=== PATIENT | male | born 1960 | race Caucasian/White ===

== ENCOUNTER 2020-09-24 15:13 | Emergency (ER) | payer OTHER ==
[~2020-09-24] VITALS: Ht 180.3 cm; Wt 95.5 kg
[2020-09-24 15:51] LABS: BASO % 0.3 % (0.0-2.0); EOS # 0.1 (0.0-0.7); EOS % 1.3 % (0-4.0); GRAN # 6.9 (1.4-6.5); GRAN % 71.2 % (42.2-75.2); HEMATOCRIT 43.9 % (42.0-52.0); HEMOGLOBIN 15.2 g/dl (13.5-18.0); LYMPH # 1.8 (1.2-3.4); MEAN CELL VOLUME 87 fl (80.0-100.0); MEAN CORPUSCULAR HEMOGLOBIN 30 pg (27.0-31.0); MEAN CORPUSCULAR HGB CONC 35 g/dl (33.0-37.0); MEAN PLATELET VOLUME 8.3 fl (7.4-10.4); MONO # 0.7 (0.1-0.6); MONO % 7.7 % (1.7-9.3); PLATELET COUNT 253 K/mm3 (130-400); RED BLOOD COUNT 5.04 M/mm3 (4.20-5.60); REDCELL DISTRIBUTION WIDTH-CV 12.6 % (11.5-14.5)
[2020-09-24 16:15] LABS: ANION GAP 4 mmol/L (7-16); AST,SGOT 26 U/L (15-37); BILIRUBIN,TOTAL 0.5 mg/dL (0.0-1.0); BLOOD UREA NITROGEN 15 mg/dL (9-20); CALCIUM 9.1 mg/dL (8.4-10.2); CARBON DIOXIDE 27 mmol/L (22-30); CHLORIDE 103 mmol/L (98-107); CREATININE, serum 0.94 (0.66-1.25); GLUCOSE 114 mg/dL (74-106); POTASSIUM 3.5 mmol/L (3.4-5.0); SODIUM 134 mmol/L (137-145); TOTAL PROTEIN 7.1 gm/dL (6.4-8.2)
[2020-09-24 16:16] LABS: ALANINE AMINOTRANSFERASE 29 U/L (4-49); ALKALINE PHOSPHATASE 30 U/L (50-136); TROPONIN-I < 0.012 ng/mL (0.000-0.035)
[2020-09-24 16:20] LABS: PROTHROMBIN TIME 11.2 SECONDS (9.7-12.8)
[2020-09-24 16:22] LABS: PARTIAL THROMBOPLASTIN TIME 30.6 SECONDS (26.0-37.0)
[2020-09-24 16:23] LABS: ALCOHOL(ethanol),MEDICAL < 10 mg/dL
[2020-09-24 16:48] LABS: COLLECTION METHOD IN
[2020-09-24 17:13] LABS: TRICYCLIC ANTIDEPRESS URINE NEGATIVE
[2020-09-24 17:14] LABS: PH 7 (5-8); SQUAMOUS EPITHELIAL None Seen /hpf; URINE APPEARANCE Clear; URINE BACTERIA None Seen /hpf; URINE BILIRUBIN Negative (NEGATIVE); URINE BLOOD Negative (NEGATIVE); URINE COLOR Straw; URINE GLUCOSE Negative (NEGATIVE); URINE KETONE Negative (NEGATIVE); URINE LEUKOCYTE ESTERASE Negative (NEGATIVE); URINE NITRATE Negative (NEGATIVE); URINE PROTEIN(semi-quant) Negative (NEGATIVE); URINE RBC 0-2 /hpf; URINE UROBILINOGEN Negative (NEGATIVE)
[2020-09-24 21:26] VITALS: BP 141/92; PULSE 75; TEMP 97.9
== END 2020-09-24 16:50 | disposition short-term general hospital (02) ==
LOC: COL.ER 15:13
PROVIDERS: Emergency Medicine
DX: I63.512 Cerebral infarction due to unspecified occlusion or stenosis of left middle cerebral artery (principal)
CPT/HCPCS: J2997; J7030

== ENCOUNTER 2020-10-23 10:42 | Emergency (ER) | payer OTHER ==
[~2020-10-23] VITALS: Ht 180.3 cm; Wt 95.5 kg
[2020-10-23 10:45] VITALS: TEMP 97.6
[2020-10-23 11:05] LABS: BASO % 0.3 % (0.0-2.0); EOS # 0.1 (0.0-0.7); EOS % 1.8 % (0-4.0); GRAN # 4.7 (1.4-6.5); HEMATOCRIT 43.8 % (42.0-52.0); HEMOGLOBIN 15.2 g/dl (13.5-18.0); LYMPH # 2.3 (1.2-3.4); LYMPH % 29.6 % (20.0-51.0); MEAN CELL VOLUME 87 fl (80.0-100.0); MEAN CORPUSCULAR HEMOGLOBIN 30 pg (27.0-31.0); MEAN CORPUSCULAR HGB CONC 35 g/dl (33.0-37.0); MEAN PLATELET VOLUME 8.4 fl (7.4-10.4); MONO # 0.6 (0.1-0.6); MONO % 7.5 % (1.7-9.3); PLATELET COUNT 257 K/mm3 (130-400); RED BLOOD COUNT 5.02 M/mm3 (4.20-5.60); REDCELL DISTRIBUTION WIDTH-CV 12.7 % (11.5-14.5)
[2020-10-23 11:15] LABS: PROTHROMBIN TIME 11.5 SECONDS (9.7-12.8)
[2020-10-23 11:18] LABS: PARTIAL THROMBOPLASTIN TIME 28.8 SECONDS (26.0-37.0)
[2020-10-23 11:19] LABS: ALANINE AMINOTRANSFERASE 34 U/L (4-49); ALBUMIN 4.2 gm/dL (3.5-5.0); ALKALINE PHOSPHATASE 38 U/L (50-136); ANION GAP 7 mmol/L (7-16); AST,SGOT 30 U/L (15-37); BILIRUBIN,TOTAL 0.8 mg/dL (0.0-1.0); BLOOD UREA NITROGEN 17 mg/dL (9-20); CALCIUM 9.4 mg/dL (8.4-10.2); CARBON DIOXIDE 28 mmol/L (22-30); CHLORIDE 102 mmol/L (98-107); GLUCOSE 134 mg/dL (74-106); POTASSIUM 3.4 mmol/L (3.4-5.0); SODIUM 138 mmol/L (137-145); TOTAL PROTEIN 7.4 gm/dL (6.4-8.2)
[2020-10-23 11:48] LABS: TROPONIN-I < 0.012 ng/mL (0.000-0.035)
[2020-10-23] MEDS ORDERED: ELIQUIS 5MG PO (12:06)
[2020-10-23] MEDS ORDERED: TAMBOCOR 1100 MG/TAB PO (12:06)
[2020-10-23] MEDS ORDERED: LIPITOR 80MG80 MG PO (12:06)
[2020-10-23] MEDS ORDERED: TOPROL XL 50MG50 MG PO (12:06)
[2020-10-23 12:45] VITALS: BP 122/82; PULSE 71
== END 2020-10-23 12:45 | disposition home or self-care (01) ==
LOC: COL.ER 10:42
PROVIDERS: Family Medicine
DX: I48.91 Unspecified atrial fibrillation (principal); I48.92 Unspecified atrial flutter; Z86.16 Personal history of COVID-19; Z95.9 Presence of cardiac and vascular implant and graft, unspecified

== ENCOUNTER 2020-12-24 07:13 | Day surgery (SDC) | payer OTHER ==
[~2020-12-24] VITALS: Ht 180.3 cm; Wt 97.9 kg
[2020-12-24] VITALS (12 sets, daily range): BP systolic 89–141; BP diastolic 61–83; PULSE 56–70; TEMP 98.3
[~2020-12-24 07:13] MED LIST: ELIQUIS 5MG PO; LIPITOR 80MG80 MG PO; TAMBOCOR 1100 MG/TAB PO; TOPROL XL 50MG50 MG PO
[2020-12-24 08:19] LABS: HEMATOCRIT 41.3 % (42.0-52.0); HEMOGLOBIN 14.6 g/dl (13.5-18.0); MEAN CELL VOLUME 88 fl (80.0-100.0); MEAN CORPUSCULAR HEMOGLOBIN 31 pg (27.0-31.0); MEAN CORPUSCULAR HGB CONC 35 g/dl (33.0-37.0); MEAN PLATELET VOLUME 8.7 fl (7.4-10.4); PLATELET COUNT 242 K/mm3 (130-400); RED BLOOD COUNT 4.67 M/mm3 (4.20-5.60); REDCELL DISTRIBUTION WIDTH-CV 13.2 % (11.5-14.5)
[2020-12-24 08:22] LABS: PROTHROMBIN TIME 11.1 SECONDS (9.7-12.8)
[2020-12-24 08:26] LABS: CALCIUM 8.7 mg/dL (8.4-10.2); CHOLESTEROL RISK RATIO 2.8; CREATININE, serum 0.93 (0.66-1.25); POTASSIUM 3.7 mmol/L (3.4-5.0)
[2020-12-24] MEDS ORDERED: LIPITOR 80MG80 MG PO (08:43)
[2020-12-24] MEDS ORDERED: ELIQUIS 5MG PO (08:43)
[2020-12-24] MEDS ORDERED: TOPROL XL 25MG25 MG PO (08:45)
[2020-12-24] MEDS ORDERED: TAMBOCOR50 MG PO (08:46)
[2020-12-24] MEDS ORDERED: BRILINTA90 MG PO (08:46)
[2020-12-24] MEDS ORDERED: ASPIRIN 81M81 MG/TA2 PO (08:47)
[2020-12-24] MEDS ORDERED: VITAMIN B COMPL1 SGL PO (08:48)
[2020-12-24] MEDS ORDERED: EPA FISH OIL1 SGL PO (08:48)
[2020-12-24] MEDS ORDERED: MAGNESIUM200 MG PO (08:48)
[2020-12-24] MEDS ORDERED: [UNRECOGNIZED DRUG - OTHER] PO (08:49)
--- NOTE | 2020-12-24 09:01 | NUR ---
Ptt to procedure,report to Jennifer Mancera.
--- NOTE | 2020-12-24 09:22 | NUR ---
SEE MERGE DOCUMENTATION FOR MEDICATION ADMINISTRATION AND INTRA/POST PROCEDURE SEDATION ASSESSMENTS.
--- NOTE | 2020-12-24 13:10 | NUR ---
Report to Jennifer Hunter.
--- NOTE | 2020-12-24 14:00 | NUR ---
Discharge instructions given to pt.pt verbalizes understanding.INT removed,catheter tip intact.Dressing to right radial site observed clean,dry,intact and soft to touch.Pt escorted out via wheelchair by this nurse.
== END 2020-12-24 14:24 ==
LOC: COL.CAR 07:13
PROVIDERS: Internal Medicine Cardiovascular Disease
DX: I25.10 Atherosclerotic heart disease of native coronary artery without angina pectoris (principal); I48.92 Unspecified atrial flutter; I34.0 Nonrheumatic mitral (valve) insufficiency; I34.1 Nonrheumatic mitral (valve) prolapse; Z20.822 Contact with and (suspected) exposure to COVID-19; Z79.01 Long term (current) use of anticoagulants; Z79.02 Long term (current) use of antithrombotics/antiplatelets; Z79.82 Long term (current) use of aspirin; Z86.73 Personal history of transient ischemic attack (TIA), and cerebral infarction without residual deficits; Z79.899 Other long term (current) drug therapy
CPT/HCPCS: J1644; J2250; J3010

== ENCOUNTER 2021-02-11 05:29 | Emergency (ER) | payer OTHER ==
[~2021-02-11] VITALS: Ht 182.9 cm; Wt 98.2 kg
[~2021-02-11 05:29] MED LIST changes: +ASPIRIN 81M81 MG/TA2 PO; +BRILINTA90 MG PO; +EPA FISH OIL1 SGL PO; +MAGNESIUM200 MG PO; +TAMBOCOR50 MG PO; +TOPROL XL 25MG25 MG PO; +VITAMIN B COMPL1 SGL PO; +[UNRECOGNIZED DRUG - OTHER] PO
[2021-02-11 05:31] VITALS: TEMP 98
[2021-02-11 06:16] LABS: BASO % 0.5 % (0.0-2.0); EOS # 0.3 K/mm3 (0.0-0.7); GRAN # 4.4 K/mm3 (1.4-6.5); GRAN % 51.9 % (42.2-75.2); HEMATOCRIT 46.1 % (42.0-52.0); LYMPH # 2.8 K/mm3 (1.2-3.4); LYMPH % 32.9 % (20.0-51.0); MEAN CELL VOLUME 88 fl (80.0-100.0); MEAN CORPUSCULAR HEMOGLOBIN 30 pg (27.0-31.0); MEAN CORPUSCULAR HGB CONC 35 g/dl (33.0-37.0); MEAN PLATELET VOLUME 8.7 fl (7.4-10.4); MONO # 0.8 K/mm3 (0.1-0.6); MONO % 9.6 % (1.7-9.3); PLATELET COUNT 286 K/mm3 (130-400); RED BLOOD COUNT 5.26 M/mm3 (4.20-5.60); REDCELL DISTRIBUTION WIDTH-CV 13.2 % (11.5-14.5)
[2021-02-11 06:33] LABS: ALANINE AMINOTRANSFERASE 65 U/L (0-55); ALBUMIN 3.8 gm/dL (3.4-4.8); ALKALINE PHOSPHATASE 38 U/L (0-750); ANION GAP 9 mmol/L (7-16); AST,SGOT 33 U/L (5-34); BILIRUBIN,TOTAL 0.9 mg/dL (0.2-1.2); BLOOD UREA NITROGEN 13 mg/dL (8-26); CALCIUM 9.3 mg/dL (8.4-10.2); CARBON DIOXIDE 26 mmol/L (23-31); CHLORIDE 106 mmol/L (98-107); CREATININE, serum 1.03 mg/dL (0.72-1.25); GLUCOSE 101 mg/dL (70-99); POTASSIUM 3.8 mmol/L (3.5-4.5); SODIUM 141 mmol/L (136-145); TOTAL PROTEIN 7.1 gm/dL (6.2-8.1)
[2021-02-11 06:41] LABS: TROPONIN-I < 0.010 ng/mL (0.00-0.033)
[2021-02-11 07:10] VITALS: BP 118/68; PULSE 62
== END 2021-02-11 07:18 | disposition home or self-care (01) ==
LOC: COL.ER 05:29
PROVIDERS: Emergency Medicine Emergency Medical Services
DX: I49.1 Atrial premature depolarization (principal); M25.552 Pain in left hip; Z86.73 Personal history of transient ischemic attack (TIA), and cerebral infarction without residual deficits; Z79.01 Long term (current) use of anticoagulants; Z79.82 Long term (current) use of aspirin

== ENCOUNTER → 2021-02-12 | Outpatient (CLI) | payer OTHER | LOC: COL.RAD 11:16 | DX: I63.412 Cerebral infarction due to embolism of left middle cerebral artery (principal); I65.21 Occlusion and stenosis of right carotid artery ==

== ENCOUNTER 2021-03-04 07:11 | Outpatient (CLI) | payer OTHER ==
[~2021-03-04] VITALS: Ht 180.3 cm; Wt 100.0 kg
[2021-03-04 07:49] VITALS: BP 115/70; PULSE 61; TEMP 97
--- NOTE | 2021-03-04 09:30 | NUR ---
procedure completed by Dr Ragland, education by laborer adjustable steel joist in loop device. pt is up dressed sitting in chair, dressing over chest site is clean and dry. Reviewed discharge inst. with pt on 2 followup appts that were made. reviewed dressing site care also, no new meds, with verbal understanding. Pt was discharged with equipment, ambulatory at 0945
== END 2021-03-04 09:45 | disposition home or self-care (01) ==
LOC: COL.CAR 07:11
DX: I48.91 Unspecified atrial fibrillation (principal); I48.92 Unspecified atrial flutter; I34.0 Nonrheumatic mitral (valve) insufficiency; I34.1 Nonrheumatic mitral (valve) prolapse
CPT/HCPCS: 27124; C1764

== ENCOUNTER → 2022-07-08 | Outpatient (CLI) | payer OTHER ==
[~2022-07-08] MED LIST changes: +CRESTOR 10MG10 MG PO; +FLEXERIL 1010 MG/TAB PO; +NEURONTIN300 MG/CAP PO; +NORCO 325 MG-51 TAB PO; +ULTRAM 50MG TAB50 MG PO
== END ==
LOC: COL.RAD 14:14
DX: E04.1 Nontoxic single thyroid nodule (principal)

== ENCOUNTER 2022-08-02 09:26 | Outpatient (CLI) | payer OTHER ==
[~2022-08-02] VITALS: Ht 180.3 cm; Wt 93.7 kg
[2022-08-02 10:09] VITALS: BP 134/84; PULSE 68; TEMP 98.1
[2022-08-02 10:50] VITALS: BP 133/93; PULSE 67
[2022-08-02 11:00] VITALS: BP 131/83; PULSE 62
[2022-08-02 11:15] VITALS: BP 133/102; PULSE 67
[2022-08-02 11:16] LABS: GLUCOSE,CSF 63 mg/dL (40-70); TOTAL PROTEIN,CSF 61 mg/dL (15-45)
[2022-08-02 11:30] VITALS: BP 127/82; PULSE 64
[2022-08-02 11:45] VITALS: BP 121/80; PULSE 63
--- NOTE | 2022-08-02 12:28 | NUR ---
Pt did well during his recovery. He is up and amb in his room with steady gait after 1 hour bedrest. I reviewed dc/fu instructions with pt and sig other. Pt denies questions at time of departure. To exit via wheelchair.
[2022-08-02 12:41] LABS: CSF APPEARANCE CLEAR; CSF COLOR COLORLESS; CSF RBC 18 /mm3 (0-0)
[2022-08-02 13:32] LABS: CSF MONONUCLEAR 50 % (70-100); CSF POLYMORPHONUCLEAR 50 % (0-6)
[2022-08-04 17:18] LABS: ALBUMUN SERUM 3800 mg/dL (())
== END 2022-08-02 12:49 | disposition home or self-care (01) ==
LOC: COL.RAD 09:26
PROVIDERS: Psychiatry & Neurology Neurology
DX: G62.89 Other specified polyneuropathies (principal); M48.062 Spinal stenosis, lumbar region with neurogenic claudication; M51.36 Other intervertebral disc degeneration, lumbar region

== ENCOUNTER 2022-08-05 09:00 | Outpatient (RCR) | payer OTHER | END 2022-08-06 | disposition home or self-care (01) | LOC: WSPT | DX: M54.50 Low back pain, unspecified (principal) ==

== ENCOUNTER → 2022-08-24 | Outpatient (CLI) | payer OTHER | LOC: MHCPAIN 10:19 | DX: M54.50 Low back pain, unspecified (principal); M51.36 Other intervertebral disc degeneration, lumbar region; M47.816 Spondylosis without myelopathy or radiculopathy, lumbar region; M25.551 Pain in right hip; Z86.73 Personal history of transient ischemic attack (TIA), and cerebral infarction without residual deficits | CPT/HCPCS: G0463 ==

== ENCOUNTER → 2022-08-26 | Outpatient (CLI) | payer OTHER | LOC: COL.RAD 11:15 | DX: M25.551 Pain in right hip (principal) ==

== ENCOUNTER 2022-09-02 08:15 | Outpatient (RCR) | payer OTHER | END 2022-09-05 | disposition home or self-care (01) | LOC: WSPT | DX: M54.50 Low back pain, unspecified (principal) ==

== ENCOUNTER → 2022-09-17 | Outpatient (REF) | payer OTHER ==
[2022-09-17 18:32] LABS: BAND 1 % (0-10); EOSINOPHIL 3 % (0-4); LYMPHOCYTE 17 % (20.0-51.0); METAMYELOCYTE 1 % (0-0); NEUTROPHILS 71 % (42.0-75.2)
[2022-09-17 18:33] LABS: PLATELET ESTIMATE NORMAL (NORMAL)
== END ==
LOC: ZCOL.LAB 17:22
PROVIDERS: Family Medicine
DX: D80.1 Nonfamilial hypogammaglobulinemia (principal)

== ENCOUNTER 2022-12-15 08:15 | Outpatient (RCR) | payer OTHER | END 2023-01-06 | disposition home or self-care (01) | LOC: WSPT | DX: M54.50 Low back pain, unspecified (principal) ==

== ENCOUNTER 2023-04-06 09:00 | Outpatient (RCR) | payer OTHER | END 2023-04-07 | disposition home or self-care (01) | LOC: WSPT | DX: Z98.890 Other specified postprocedural states (principal) ==

== ENCOUNTER 2023-05-06 09:00 | Outpatient (RCR) | payer OTHER | END 2023-05-08 | disposition home or self-care (01) | LOC: WSPT | DX: Z98.890 Other specified postprocedural states (principal) ==

== ENCOUNTER 2023-05-30 09:00 | Outpatient (RCR) | payer OTHER | END 2023-06-08 | disposition home or self-care (01) | LOC: WSPT | DX: Z98.890 Other specified postprocedural states (principal) ==

== ENCOUNTER → 2023-10-26 | Outpatient (CLI) | payer OTHER | LOC: MHCPAIN 10:24 | DX: M47.816 Spondylosis without myelopathy or radiculopathy, lumbar region (principal); M54.50 Low back pain, unspecified | CPT/HCPCS: G0463 ==